=== PATIENT | male | born 1955 | race Caucasian/White ===

== ENCOUNTER 2016-02-23 09:14 | Emergency (ER) | payer MEDICAID ==
[2015-10-25 14:36] VITALS: BMI 38.1
[~2016-02-23 09:14] MED LIST: ALEVE220 MG PO; AMBIEN10 MG PO; BAYER CHEWABLE81 MG PO; COMBIVENT RESPIM4 GM INH; COUMADIN5 MG PO; ELIQUIS2.5 MG PO; LIPITOR10 MG PO; NAPROSYN250 MG PO; NEURONTIN 300300 MG PO; OXYCODONE HCL E20 MG PO; OXYCODONE HCL10 MG PO; PAXIL20 MG PO; PERCOCET 10/3251 TA1 PO; SYMBICORT 16010.2 GM INH; TOPROL XL25 MG PO; WELLBUTRIN100 MG PO; XANAX1 MG PO; ZANAFLEX4 MG PO
[2016-02-23 09:49] LABS: BASOPHILS 0.6 % (0.0-2.0); EOSINOPHILS 6.1 % (0-7); HEMATOCRIT 47.5 % (42.0-54.0); HEMOGLOBIN 15.5 g/dL (13.5-17.5); IMMATURE GRANULOCYTES 0.2 % (0-5); LYMPHOCYTES 37.4 % (15-50); MCH 33.5 pg (26.0-34.0); MCHC 32.6 g/dL (31.0-37.0); MCV 102.8 fL (80.0-100.0); MEAN PLATELET VOLUME 10.3 fL (7.4-10.4); MONOCYTES 5.9 % (2-11); NEUTROPHILS 49.8 % (40-80); PLATELET COUNT 245 10x3/uL (130-400); RBC 4.62 10x6/uL (4.20-6.10); RDW 13.1 % (11.5-14.5); WBC 8.5 10x3/uL (4.8-10.8)
[2016-02-23 10:20] LABS: ALBUMIN 3.7 g/dL (3.4-5.0); ANION GAP 11.9 mmol/L (8-16); BILIRUBIN - TOTAL 0.35 mg/dL (0.2-1.3); CALCIUM 9.4 mg/dL (8.5-10.1); CREATININE - SERUM 1.1 mg/dL (0.6-1.3); POTASSIUM - SERUM 3.9 mmol/L (3.5-5.1); PROTEIN - SERUM 6.6 g/dL (6.4-8.2)
[2016-02-23 10:46] LABS: APPEARANCE CLEAR (CLEAR); BILIRUBIN NEGATIVE (NEGATIVE); COLOR YELLOW (YELLOW); GLUCOSE NEGATIVE (NEGATIVE); KETONE NEGATIVE (NEGATIVE); LEUKOCYTE ESTERASE NEGATIVE (NEGATIVE); NITRITE NEGATIVE (NEGATIVE); PROTEIN NEGATIVE (NEGATIVE); SPECIFIC GRAVITY 1.015 (1.005-1.020); UROBILINOGEN NORMAL (NORMAL)
== END 2016-02-23 13:05 | disposition home or self-care (01) ==
LOC: D.ER 09:14
PROVIDERS: Emergency Medicine Emergency Medical Services
DX: R53.1 Weakness (principal); R00.1 Bradycardia, unspecified; J44.9 Chronic obstructive pulmonary disease, unspecified; I50.9 Heart failure, unspecified; F17.200 Nicotine dependence, unspecified, uncomplicated

== ENCOUNTER 2016-03-25 14:15 | Emergency (ER) | payer MEDICAID ==
[2015-10-25 14:36] VITALS: BMI 38.1
== END 2016-03-25 17:25 | disposition home or self-care (01) ==
LOC: D.ER 14:15
DX: S83.91XA Sprain of unspecified site of right knee, initial encounter (principal); W01.0XXA Fall on same level from slipping, tripping and stumbling without subsequent striking against object, initial encounter; Y93.89 Activity, other specified; Y92.019 Unspecified place in single-family (private) house as the place of occurrence of the external cause; I50.9 Heart failure, unspecified; J44.9 Chronic obstructive pulmonary disease, unspecified

== ENCOUNTER 2016-04-20 13:24 | Emergency (ER) | payer MEDICAID ==
[2015-10-25 14:36] VITALS: BMI 38.1
[2016-04-20 14:04] LABS: BASOPHILS 0.3 % (0.0-2.0); EOSINOPHILS 1.2 % (0-7); HEMATOCRIT 50.7 % (42.0-54.0); HEMOGLOBIN 16.6 g/dL (13.5-17.5); IMMATURE GRANULOCYTES 0.4 % (0-5); LYMPHOCYTES 13.7 % (15-50); MCH 33.1 pg (26.0-34.0); MCHC 32.7 g/dL (31.0-37.0); MCV 101.2 fL (80.0-100.0); MEAN PLATELET VOLUME 10.5 fL (7.4-10.4); MONOCYTES 7.5 % (2-11); NEUTROPHILS 76.9 % (40-80); PLATELET COUNT 292 10x3/uL (130-400); RBC 5.01 10x6/uL (4.20-6.10); RDW 13.5 % (11.5-14.5); WBC 11.4 10x3/uL (4.8-10.8)
[2016-04-20 14:29] LABS: ALBUMIN 4.3 g/dL (3.4-5.0); ALKALINE PHOSPHATASE 93 U/L (46-116); ALT (SGPT) 32 U/L (10-68); BILIRUBIN - TOTAL 0.34 mg/dL (0.2-1.3); CALC OSMOLALITY 280 mosm/kg (275-300); CALCIUM 9.1 mg/dL (8.5-10.1); CARBON DIOXIDE 28.5 mmol/L (21.0-32.0); CHLORIDE - SERUM 102 mmol/L (98-107); GLUCOSE 109 mg/dL (74-106); POTASSIUM - SERUM 4.7 mmol/L (3.5-5.1); PROTEIN - SERUM 7.6 g/dL (6.4-8.2); SODIUM 139 mmol/L (136-145); UREA NITROGEN 18 mg/dL (7-18); eGFR NON AFRICAN AMERICAN 81 mL/min (90-120)
[2016-04-20 14:42] LABS: APPEARANCE HAZY (CLEAR); BILIRUBIN NEGATIVE (NEGATIVE); COLOR YELLOW (YELLOW); GLUCOSE NEGATIVE (NEGATIVE); KETONE NEGATIVE (NEGATIVE); LEUKOCYTE ESTERASE NEGATIVE (NEGATIVE); NITRITE NEGATIVE (NEGATIVE); PROTEIN NEGATIVE (NEGATIVE); SPECIFIC GRAVITY 1.025 (1.005-1.020); UROBILINOGEN NORMAL (NORMAL)
[2016-04-20 14:43] LABS: BACTERIA FEW /hpf (NONE SEEN); EPITHELIAL CELLS OCC /hpf (0-5); GRANULAR CAST RARE /lpf (NONE SEEN); HYALINE CAST 0-5 /lpf (NONE SEEN); MUCUS <1+ /lpf (NONE SEEN); RED CELLS - URINE OCC /hpf (0-5); WHITE CELLS - URINE RARE /hpf (0-5)
[2016-04-20 15:23] LABS: UDS - AMPHET NEGATIVE QUAL (NEGATIVE); UDS - BARB NEGATIVE QUAL (NEGATIVE); UDS - BENZO POSITIVE QUAL (NEGATIVE); UDS - COCAINE NEGATIVE QUAL (NEGATIVE); UDS - METH NEGATIVE QUAL (NEGATIVE); UDS - OPIATE POSITIVE QUAL (NEGATIVE); UDS - PCP NEGATIVE QUAL (NEGATIVE); UDS - THC POSITIVE QUAL (NEGATIVE)
== END 2016-04-20 17:46 | disposition home or self-care (01) ==
LOC: D.ER 13:24
PROVIDERS: Emergency Medicine
DX: E86.0 Dehydration (principal); R55 Syncope and collapse; T65.91XA Toxic effect of unspecified substance, accidental (unintentional), initial encounter; Y92.019 Unspecified place in single-family (private) house as the place of occurrence of the external cause; I50.9 Heart failure, unspecified; J44.9 Chronic obstructive pulmonary disease, unspecified

== ENCOUNTER 2016-07-26 14:10 | Emergency (ER) | payer MEDICAID ==
[2015-10-25 14:36] VITALS: BMI 38.1
== END 2016-07-26 14:11 | disposition home or self-care (01) ==
LOC: D.ER 14:10
DX: S32.028A Other fracture of second lumbar vertebra, initial encounter for closed fracture (principal)

== ENCOUNTER 2016-09-18 11:08 | Inpatient (IN) | payer MEDICAID ==
[~2016-09-18] VITALS: Ht 177.8 cm; Wt 127.6 kg
--- NOTE | ~2016-09-18 | HEMODYNAMI ---
PATIENT:ASHLEY PAZ MEDICAL RECORD: [id number] : 59 LOCATION:D. D.2116 ADMISSION DATE: 09/18/16 Generatedon:09/20/201611:49 Patient name: ASHLEY PAZ Patient #: [id number] SSN: D OB: 1955 Date of study: 09/20/2016 Page: Of Hemodynamic Procedure Report Patient Data Patient Demographics Procedure consent was obtained First Name: ASHLEY Gender: Male Last Name: BRANDI : 1955 Middle Initial: PATRICIA Age: 61 year(s) Patient #: [id number] Race: Additional ID: [id number] Contact details Address: [address] [place] [address] [address] State: [place] City: [facility] Zip code: [address] Past Medical History Allergies Allergen Reaction Date Comments Reported Other allergy 10/27/2014 Sulfa, Clindamycin Other allergy 09/20/2016 Clindamycin, Sulfa, Amblify, Augmentin Admission Admission Data Admission Date: 09/18/2016 Admission Time: 14:33 Room #: D.2116 Procedure Procedure Types Cath Procedure Diagnostic Procedure LHC LH w/Coronaries Miscellaneous Procedures Moderate Sedation up to 15 minutes Procedure Description Procedure Date Procedure Date: 09/20/2016 Procedure Start Time: 11:28 Procedure End Time: 11:45 Procedure Staff Name Function Antonio Beck RT Monitor Margarita Vaz RN Nurse Geovanni Sequeira MD Performing Physician Beverly Farrell RT Scrub Procedure Data Cath Procedure Fluoroscopy Diagnostic fluoroscopy Total fluoroscopy Time: 2.3 time: 2.3 min min Diagnostic fluoroscopy Total fluoroscopy dose: 819 dose: 819 mGy mGy Contrast Material Contrast Material Type Amount (ml) Isovue 300 62 Entry Location Entry Primary Successful Side Size Upsize Upsize Entry Closure Sparks ccessful Closure Location (Fr) 1 (Fr) 2 (Fr) Remarks Device Remarks Radial Right 6 Fr Mechanical artery Short Compression Estimated blood loss: 10 ml Diagnostic catheters Device Type Used For End Catheter Placement Terumo 5Fr Philip 110cm Procedure catheter Procedure Medications Medication Administration Route Dosage Oxygen NC 4 l/min Lidocaine 2% added to field 20 Heparin Flush Bag added to field 2 bags (1000units/500ml NS) 0.9% NaCl I.V. 100 ml/hr Versed I.V. 1 mg Fentanyl I.V. 50 mcg Versed I.V. 1 mg Fentanyl I.V. 50 mcg Radial Cocktail I.A. 1 syringe (Verapomil 2mg/Nitro 400mcg/Heparin 1500units) Versed I.V. 1 mg Fentanyl I.V. 50 mcg Versed I.V. 1 mg Fentanyl I.V. 50 mcg Hemodynamics Rest Heart Rate: 72 (bpm) Pressure Samples Time Site Value (mmHg) Purpose Heart Use Rate(bpm) 11:34 LV 145/11,27 Snapshot 72 Snapshots Pre Cath Intra NCS Post Cath Vital Signs Time Heart Resp SPO2 etCO2 WI7bcan NIBP (mmHg) Rhythm Pain Sedation Rate (ipm) (%) (mmHg) (mmHg) Status Level (bpm) 11:19:20 62 17 100 0 0 139/90(109) NSR 0 (11) 10(A) , No pain 11:23:42 60 18 98 0 0 134/81(107) NSR 0 (11) 10(A) , No pain 11:28:00 62 14 95 0 0 131/89(105) NSR 0 (11) 9(A) , No pain 11:32:16 68 15 95 0 0 138/95(112) NSR 0 (11) 9(A) , No pain 11:36:34 69 16 94 0 0 122/76(104) NSR 0 (11) 9(A) , No pain 11:40:50 71 17 95 0 0 128/82(113) NSR 0 (11) 9(A) , No pain 11:43:01 68 16 95 0 0 124/75(111) NSR 0 (11) 10(A) , No pain Medications Time Medication Route Dose Verified Delivered Reason Notes Effectiveness by by 11:14:58 Oxygen NC 4 l/min Geovanni Buffie used for Hua Vaz housekeeping associate 11:17:48 Lidocaine 2% added 20ml Geovanni Geovanni for local to vial Hua Sequeira MD anesthetic field 11:17:54 Heparin Flush added 2 bags Geovanni Geovanni used for Bag to Hua Sequeira MD procedure (1000units/500ml field NS) 11:18:03 0.9% NaCl I.V. 100 Geovanni Buffie Per ml/hr Hua Vaz RN physician 11:19:21 Versed I.V. 1 mg Geovanni Buffie for sedation Hua Vaz RN 11:19:27 Fentanyl I.V. 50 mcg Geovanni Buffie for sedation Hua Vaz RN 11:26:31 Versed I.V. 1 mg Geovanni Buffie for sedation Hua Vaz RN 11:26:34 Fentanyl I.V. 50 mcg Geovanni Buffie for sedation Hua Vaz RN 11:32:48 Radial Cocktail I.A. 1 Geovanni Geovanni for (Verapomil syringe Hua Sequeira MD vasodilation 2mg/Nitro 400mcg/Hepari 11:32:54 Versed I.V. 1 mg Geovanni Buffie for sedation Hua Vaz RN 11:32:58 Fentanyl I.V. 50 mcg Geovanni Buffie for sedation Hua Vaz RN 11:38:14 Versed I.V. 1 mg Geovanni Buffie for sedation Hua Vaz RN 11:38:18 Fentanyl I.V. 50 mcg Geovanni Buffie for sedation Hua Vaz RN Procedure Log Time Note 10:59:03 Informed consent obtained and on chart 10:59:11 Diagnostic Cath Status : Elective 10:59:53 Antonio Beck RT(R) (CV) sent for patient. Start room use. 11:00:06 Time tracking: Regular hours 11:00:13 Plan of Care:Hemodynamics will remain stable., Cardiac rhythm will remain stable., Comfort level will be maintained., Respiratory function will remain adequate., Patient/ family verbilizes understanding of procedure., Procedure tolerated without complication., Recovers from procedure without complications.. 11:06:51 Patient arrived from Med/Surg to CCL 1. Patient remains on bed/stretcher for procedure. 11:06:55 Warm blankets applied, and quan hugger turned on for patient comfort. 11:06:56 Correct patient and procedure confirmed by team. 11:07:12 H&P Date Dictated: 09/19/2016 Within 30 days and on chart.. 11:07:13 Pre-op teaching completed and patient verbalized understanding. 11:07:17 Family unavailable. 11:07:19 Patient NPO since Breakfast. 11:08:30 Patient allergic to Other allergyClindamycin, Sulfa, Amblify, Augmentin 11:10:08 Is the patient allergic to Iodine/contrast media? No. 11:10:16 Is patient on blood thinner?No 11:11:15 Patient diabetic? No. 11:11:19 Snore? Yes 11:11:22 Sleep apnea? Yes 11:11:29 Airway obstruction? Yes COPD 11:11:34 Dentures? Yes tight 11:11:59 IV patent on arrival in left forearm with 0.9% NaCl at O. 11:12:11 Lab results completed and on chart. 11:12:44 Right Radial & Right Groin area was prepped with chlora-prep and draped in sterile fashion 11:12:45 Alarms reviewed by R. N. 11:12:46 Sharps counted by scrub and verified by R.N. 11:12:47 Physician paged 11:12:49 Physician arrived 11:12:52 Final Timeout: patient, procedure, and site verified with staff and physician. All members of the team are in agreement. 11:12:52 --------ALL STOP TIME OUT------ 11:12:53 Physical assessment completed. ASA score P 3 - A patient with severe systemic disease as per Geovanni Sequeira MD. 11:12:56 Right Radial & Right Groin site verified by team. 11:13:02 Sedation plan: IV Moderate Sedation Versed, Fentanyl 11:14:58 Oxygen 4 l/min NC was administered by Margarita Vaz RN; used for procedure; 11:17:48 Lidocaine 2% 20ml vial added to field was administered by Geovanni Sequeira MD; for local anesthetic; 11:17:54 Heparin Flush Bag (1000units/500ml NS) 2 bags added to field was administered by Geovanni Sequeira MD; used for procedure; 11:18:03 0.9% NaCl 100 ml/hr I.V. was administered by Margarita Vaz RN; Per physician; 11:18:06 Vital chart was started 11:19:21 Versed 1 mg I.V. was administered by Margarita Vaz RN; for sedation; 11:19:27 Fentanyl 50 mcg I.V. was administered by Margarita Vaz RN; for sedation; 11:22:01 Use device set Radial Dx 11:22:02 Acist Syringe opened to sterile field. 11:22:03 Medline Cath Pack opened to sterile field. 11:22:04 Bag Decanter opened to sterile field. 11:22:05 Terumo 6Fr Slender Glidesheath opened to sterile field. 11:22:06 St Chilo 260cm J .035 wire opened to sterile field. 11:22:07 Acist Hand Control opened to sterile field. 11:22:08 Acist Manifold opened to sterile field. 11:22:09 Tegaderm 4 x 4 opened to sterile field. 11:22:10 MBrace Wrist Support opened to sterile field. 11::31 Versed 1 mg I.V. was administered by Margarita Vaz RN; for sedation; 11::34 Fentanyl 50 mcg I.V. was administered by Margarita Vaz RN; for sedation; 11:28:25 Full Disclosure recording started 11::25 Procedure started. 11:28:31 Local anesthetic to right radial artery with Lidocaine 2% by Geovanni Sequeira MD.INITIAL ACCESS ONLY 11:29:47 Zero performed for pressure channel P1 11:32:19 A 6 Fr Short sheath was inserted into the Right Radial artery 11:32:48 Radial Cocktail (Verapomil 2mg/Nitro 400mcg/Heparin 1500units) 1 syringe I.A. was administered by Geovanni Sequeira MD; for vasodilation; 11:32:54 Versed 1 mg I.V. was administered by Margarita Vaz RN; for sedation; 11:32:55 A Terumo 5Fr Philip 110cm catheter was advanced over the wire and used for Procedure. 11:32:58 Fentanyl 50 mcg I.V. was administered by Margarita Vaz RN; for sedation; 11:34:15 LV hemodynamics recorded. 11:34:21 LV gram done using LOMBARDI 11:35:02 EF : 50 % 11:35:57 LCA angiography performed. 11:36:34 RCA angiography performed. 11:38:14 Versed 1 mg I.V. was administered by Margarita Vaz RN; for sedation; 11:38:18 Fentanyl 50 mcg I.V. was administered by Margarita Vaz RN; for sedation; 11:39:07 Catheter removed. 11:42:05 Terumo TR Band Large opened to sterile field. 11:42:19 Sheath removed intact; hemostasis achieved with Mechanical Compression to the Right Radial artery. 11:42:25 Procedure ended.(Physican Out) 11:42:42 Fluoroscopy time 02.30 minutes. 11:42:48 Fluoroscopy dose: 819 mGy 11:42:48 Flurop Dose total: 819 11:42:53 Contrast amount:Isovue 300 62ml. 11:42:55 Sharps counted by scrub and verified by R.N. 11:43:09 TR band inflated with 10cc of air. 11:43:45 Insertion/operative site no bleeding no hematoma. 11:43:53 Post right radial artery:stable 11:44:06 Post-procedure physical assessment completed. ASA score P 3 - A patient with severe systemic disease as per Geovanni Sequeira MD. 11:44:11 Post procedure rhythm: sinus rhythm 11:44:17 Estimated blood loss: 10 ml 11:44:23 Post procedure instruction explained to patient.Patient verbalizes understanding. 11:44:24 Patient needs reinforcement of post procedure teaching. 11:44:27 Procedure and supply charges have been captured, reviewed, submitted and are correct. 11:44:57 Vital chart was stopped 11:44:58 See physician's report for complete and final results. 11:45:02 Report given to PCU. 11:45:07 Patient transfered to PCU with Bed. 11:45:10 Full Disclosure recording stopped 11:45:10 Procedure ended. 11:45:22 End room use (Document Last) 11:48:01 Procedure type changed to Cath procedure, Diagnostic procedure, LHC, LHC w/Coronaries, Miscellaneous Procedures, Moderate Sedation up to 15 minutes Device Usage Item Name Manufacture Quantity Catalog Hospital Part Current Minimal Lot# / Number Charge Number Stock Stock Serial# Code Acist Acist 1 98221 146571 171527 412027 20 Syringe Medical Systems Inc Medline Cardinal 1 [id number] 128714 35078 472589 5 Cath Pack Health Bag Microtek 1 2001S 541996 18884 735764 5 [employer] Terumo 6Fr Terumo 1 [id number] 293882 481747 271436 [address] Chilo 1 975615 313572 504379 331382 30 260cm J .035 wire Acist Hand Acist 1 10175 444745 375244 514474 5 Control Medical Systems Inc Acist Acist 1 95887 131886 190598 241564 5 Manifold Medical Systems Inc Tegaderm 4 3M 1 1626W 116119 901208 831804 5 x 4 MBrace Advanced 1 140-0250-00 077170 46675 770422 5 Wrist Vascular Support Dynamics Terumo 5Fr Terumo 1 21-3584 548602 790331 335306 5 Philip 110cm catheter Terumo TR Terumo 1 [id number] 698950 862051 285669 40 Band Large Signature Audit [place] Stage Time Signature Unsigned Intra-Procedure 09/20/2016 Antonio Beck RT(R) 11:46:04 AM RT(R) (CV) (CV) 09/20/2016 11:47:45 AM Intra-Procedure 09/20/2016 Antonio Beck 11:49:17 AM RT(R) (CV) Signatures Monitor : Antonio Beck RT Signature : Date : Time : [facility] [address] [place] [address]
[2016-09-18 11:44] LABS: APPEARANCE CLEAR (CLEAR); BILIRUBIN NEGATIVE (NEGATIVE); COLOR YELLOW (YELLOW); GLUCOSE NEGATIVE (NEGATIVE); KETONE NEGATIVE (NEGATIVE); LEUKOCYTE ESTERASE NEGATIVE (NEGATIVE); NITRITE NEGATIVE (NEGATIVE); PROTEIN NEGATIVE (NEGATIVE); SPECIFIC GRAVITY 1.015 (1.005-1.020); UROBILINOGEN NORMAL (NORMAL)
[2016-09-18 13:24] LABS: BASOPHILS 0.3 % (0-2); HEMOGLOBIN 15.7 g/dL (13.5-17.5); IMMATURE GRANULOCYTES 0.3 % (0-5); MCH 33.4 pg (26.0-34.0); MCHC 31.4 g/dL (31.0-37.0); MCV 106.4 fL (80.0-100.0); MEAN PLATELET VOLUME 10.2 fL (7.4-10.4); MONOCYTES 6.1 % (2-11); NEUTROPHILS 64.3 % (40-80); PLATELET COUNT 287 10x3/uL (130-400); RDW 13.5 % (11.5-14.5); WBC 9.2 10x3/uL (4.8-10.8)
[2016-09-18 13:38] LABS: ALBUMIN 3.4 g/dL (3.4-5.0); ALKALINE PHOSPHATASE 65 U/L (46-116); ALT (SGPT) 23 U/L (10-68); BILIRUBIN - TOTAL 0.42 mg/dL (0.2-1.3); CALC OSMOLALITY 279 mosm/kg (275-300); CALCIUM 8.6 mg/dL (8.5-10.1); CARBON DIOXIDE 34.7 mmol/L (21.0-32.0); CHLORIDE - SERUM 103 mmol/L (98-107); CREATININE - SERUM 0.7 mg/dL (0.6-1.3); GLUCOSE 103 mg/dL (74-106); PROTEIN - SERUM 6.4 g/dL (6.4-8.2); SODIUM 141 mmol/L (136-145); UREA NITROGEN 9 mg/dL (7-18); eGFR NON AFRICAN AMERICAN > 90 mL/min (90-120)
[2016-09-18 13:41] LABS: CREATINE KINASE 44 UL (21-232); MAGNESIUM - SERUM 2.1 mg/dL (1.8-2.4)
[2016-09-18 13:42] LABS: TROPONIN-I < 0.017 ng/mL (0.000-0.060)
[2016-09-18 14:16] LABS: APPEARANCE - CSF COLORLESS; RBC - CSF 1420 cmm (0-0)
[2016-09-18 15:11] LABS: GLUCOSE - CSF 73 MG/DL (40-75); PROTEIN - CSF 62 MG/DL (12-60)
[2016-09-18] MEDS ORDERED: ROXICODONE15 MG PO (16:01)
[2016-09-18 16:10] VITALS: BP 135/80; Ht 177.8 cm; Wt 127.6 kg
--- NOTE | 2016-09-18 16:10 | NUR ---
PATIENT ASSESSMENT COMPLETE, VS STABLE. NO COMPLAINTS AT THIS TIME. STATED HE IS ON SEVERAL PAIN MEDS AND WANTS THEM NOW. EXPLAINED I WOULD LOOK AT ORDERS AND SPEAK TO PHYSICIAN NEEDED.
--- NOTE | 2016-09-18 16:50 | NUR ---
PATIENT JUST CAME OUT OF HIS ROOM AND SAID THAT HE WAS ONLY GOING TO WAIT 30 MORE MINUTES AND THAT IF HE DOESNT GET HIS PAIN MEDS SOON HE IS LEAVING AMA. EXPLAINED TO PATIENT THAT I HAVE ALREADY SPOKE WITH ROSARIO AND SHE IS LOOKING AT HIS MEDS. PATIENT STILL NOT SATIFIED. WENT BACK TO ROOM.
[2016-09-18 19:00] VITALS: BP 125/70
[2016-09-18 20:04] LABS: CREATINE KINASE 36 UL (21-232)
[2016-09-18 20:08] LABS: TROPONIN-I < 0.017 ng/mL (0.000-0.060)
--- NOTE | 2016-09-18 21:06 | NUR ---
AWAKE,ALERT,ORIENTED. IV INFUSING TO LEFT HAND WITHOUT REDNESS OR EDEMA NOTED. NO COMPLAINTS VOICED. CL IN REACH.
--- NOTE | 2016-09-19 00:20 | NUR ---
PATIENT IS AWAKE AND ALERT. PATIENT IS HOLDING HIS RIGHT HAND UP LOOKING AT IT, WHERE THE IV IS. PATIENT STATED "IT IS STINGING AND SWELLING UP PRETTY BAD." PAUSED IVF. LOOKED AT HAND, NO SWELLING VISUALIZED. FLUSHED IV WITH SALINE, READILY FLUSHED, ASPIRATED GOOD BLOOD RETURN, SHOWED PATIENT THE BLOOD RETURN. EXPLAINED TO PATIENT THAT THE IV IS IN THE NASIR. FLUSHED WITH THE REMAINDER OF THE FLUSH. PATIENT STATED "IT FEELS COOL NOW." PATIENT HAS SCDS OFF, PATIENT STATED "I TOOK THOSE OFF BECAUSE THEY HURT MY LEGS." PATIENT DENIES NEEDS AT THIS TIME. BED IN LOWEST POSITION, CALL LIGHT IN REACH. BED RAILS UP X'S 2.
[2016-09-19 00:55] VITALS: BP 125/71
--- NOTE | 2016-09-19 02:03 | NUR ---
AWAKE,ALERT. COMPLAINTS OF PAIN TO BILATERAL KNEES. OXYCODONE GIVEN PER ORDERS. CL IN REACH.
[2016-09-19 02:47] LABS: BASOPHILS 0.4 % (0-2); HEMATOCRIT 45.8 % (42.0-54.0); HEMOGLOBIN 14.5 g/dL (13.5-17.5); IMMATURE GRANULOCYTES 0.2 % (0-5); LYMPHOCYTES 33.7 % (15-50); MCH 33.6 pg (26.0-34.0); MCHC 31.7 g/dL (31.0-37.0); MCV 106.3 fL (80.0-100.0); MEAN PLATELET VOLUME 10.1 fL (7.4-10.4); MONOCYTES 9.8 % (2-11); NEUTROPHILS 52.9 % (40-80); PLATELET COUNT 287 10x3/uL (130-400); RBC 4.31 10x6/uL (4.20-6.10); RDW 13.6 % (11.5-14.5); WBC 8.1 10x3/uL (4.8-10.8)
[2016-09-19 03:23] LABS: ALBUMIN 3.1 g/dL (3.4-5.0); ALKALINE PHOSPHATASE 65 U/L (46-116); ALT (SGPT) 20 U/L (10-68); CALC OSMOLALITY 277 mosm/kg (275-300); CALCIUM 8.4 mg/dL (8.5-10.1); CARBON DIOXIDE 32.3 mmol/L (21.0-32.0); CHLORIDE - SERUM 102 mmol/L (98-107); CREATINE KINASE 29 UL (21-232); GLUCOSE 98 mg/dL (74-106); PROTEIN - SERUM 6.2 g/dL (6.4-8.2); SODIUM 140 mmol/L (136-145); TROPONIN-I < 0.017 ng/mL (0.000-0.060); UREA NITROGEN 10 mg/dL (7-18)
[2016-09-19 03:24] LABS: CREATININE - SERUM 0.9 mg/dL (0.6-1.3); POTASSIUM - SERUM 3.8 mmol/L (3.5-5.1); eGFR NON AFRICAN AMERICAN > 90 mL/min (90-120)
[2016-09-19 04:00] VITALS: BP 128/83
--- NOTE | 2016-09-19 06:08 | NUR ---
AWAKE,ALERT.NO DISTRESS NOTED. CL IN REACH.
[2016-09-19 07:39] VITALS: BP 116/67
--- NOTE | 2016-09-19 08:20 | NUR ---
Patient Name: ASHLEY PAZ Admission Status: ER Accout number: [id number] Admission Date: 09-18-2016 : 1955 Admission Diagnosis: Attending: CLARENCE Current LOS: 1 Anticipated DC Date: 09-24-2016 Planned Disposition: Home Primary Insurance: MEDICAID [place] Discharge Planning Comments: CM MET WITH PATIENT REGARDING D/C NEEDS AND PLANS. PATIENT STATED HE LIVES ALONE AND WILL PROBABLY NEED A RIDE HOME AT DISCHARGE. PATIENT STATED HE HAS NO STEPS OR STAIRS AT HIS HOME. PATIENT STATED HE IS INDEPENDENT WITH HIS CARE AND HAS A WALKER, CANE, AND OXYGEN (2L) AT HS. [employer] SUPPLIES THE OXYGEN PER PATIENT. DR. VARELA IS PATIENTS PCP AND PATIENT USES [facility]. PATIENT STATED HE DOES NOT WANT HOME HEALTH AT DISCHARGE. CM WILL CONTINUE TO FOLLOW PATIENT WITH D/C NEEDS AND PLANS. PCP DR. MARQUEZ [facility]- [phone] DAVID BLUM (FRIEND) [phone] Optical Laboratory Technician: Susana Guadarrama Is the patient Alert and Oriented? Yes 0 * How many steps to enter\exit or inside your home? 0 0 * PCP DR. VARELA 0 * Pharmacy [facility] 0 * Preadmission Environment Home Alone 0 * ADLs Independent 0 * Equipment Cane Oxygen Walker 0 * Other Equipment OXYGEN SUPPLIE BY [employer] 0 * List name and contact numbers for known caregivers / representatives who currently or will assist patient after discharge: ADVID BLUM [phone] (FRIEND) 0 * Community resources currently utilized None 0 * Additional services required to return to the preadmission environment? Yes 0 * Can the patient safely return to the preadmission environment? Yes 0 * Has this patient been hospitalized within the prior 30 days at any hospital? No 0 Grand Total: 0
--- NOTE | 2016-09-19 08:27 | NUR ---
AWAKE AND ALERT. ORIENTED X3. NO C/O AT THIS TIME. LUNGS ARE CLEAR BILATERALLY, NO COUGH NOTED. SKIN IS INTACT WITHOUT REDNESS. IV TO LEFT HAND PATENT WITHOUT REDNESS AT INSERTION SITE. DENIES NEEDS.
[2016-09-19 09:15] LABS: CKMB 0.2 U/L (0.0-3.6); CREATINE KINASE 36 UL (21-232); TROPONIN-I < 0.017 ng/mL (0.000-0.060)
--- NOTE | 2016-09-19 09:52 | NUR ---
REQUESTED AND GIVEN 15MG OXY IR PO FOR C/O BACK AND BILATERAL KNEE PAIN LEVEL 8. WILL MONITOR.
--- NOTE | 2016-09-19 10:30 | NUR ---
AMBULATED IN HALLWAY PER SELF. NO INCREASED SOB NOTED WITH ACTIVITY. CONTINUES WITH DRY COUGH.
[2016-09-19 12:09] LABS: BASOPHILS 0.2 % (0-2); EOSINOPHILS 2.4 % (0-7); HEMOGLOBIN 15.5 g/dL (13.5-17.5); IMMATURE GRANULOCYTES 0.1 % (0-5); LYMPHOCYTES 24.3 % (15-50); MCH 33.8 pg (26.0-34.0); MCHC 31.6 g/dL (31.0-37.0); MCV 106.8 fL (80.0-100.0); MEAN PLATELET VOLUME 10.6 fL (7.4-10.4); MONOCYTES 5.7 % (2-11); NEUTROPHILS 67.3 % (40-80); PLATELET COUNT 296 10x3/uL (130-400); RBC 4.59 10x6/uL (4.20-6.10); RDW 13.8 % (11.5-14.5); WBC 8.4 10x3/uL (4.8-10.8)
[2016-09-19 12:15] LABS: CALC OSMOLALITY 283 mosm/kg (275-300); CALCIUM 8.5 mg/dL (8.5-10.1); CARBON DIOXIDE 31.9 mmol/L (21.0-32.0); CHLORIDE - SERUM 103 mmol/L (98-107); CREATININE - SERUM 0.9 mg/dL (0.6-1.3); GLUCOSE 95 mg/dL (74-106); POTASSIUM - SERUM 4.1 mmol/L (3.5-5.1); SODIUM 143 mmol/L (136-145); UREA NITROGEN 9 mg/dL (7-18); eGFR NON AFRICAN AMERICAN > 90 mL/min (90-120)
[2016-09-19 12:17] VITALS: BP 140/72
--- NOTE | 2016-09-19 14:23 | NUR ---
20GUAGE IV RESITED TO L FOREARM. X1 ATTEMPT. SALINE LOCKED AND SECURED WITH TAPE.
--- NOTE | 2016-09-19 14:30 | NUR ---
IV SITED TO LEFT FOREARM AFTER SEVERAL ATTEMPTS PER STAFF. DENIES NEEDS. VERY APOLOGITIC RE THOUGHTS OF GOING AMA THIS AM.
[2016-09-19 15:35] VITALS: BP 124/70
--- NOTE | 2016-09-19 18:38 | NUR ---
ATE ALL OF SUPPER TRAY. DENIES NEEDS. NO CHANGES NOTED. C/O FEELING SLIGHTLY OUT OF BREATH. PLACED ON 2L O2 NC. WILL MONITOR.
[2016-09-19 19:00] VITALS: BP 125/78
--- NOTE | 2016-09-19 19:30 | NUR ---
RECIEVED SHIFT REPORT. PT IS LYING IN BED. ALERT AND ORIENTED AND ABLE TO VERBALIZE NEEDS. IV IS PATENT AND FLUIDS ARE RUNNING PER ORDER. PT IS AMBULATORY BUT WAS INSTRUCTED TO CALL FOR ANY ASSISTANCE NEEDED. O2 @ 2 PER NASAL CANNULA. PT STATES PAIN IS 10/10. NO NEEDS ARE VERBALIZED AT THIS TIME. WILL CONTINUE TO MONITOR. SIDE RAILS ARE UP X 2. BED IS IN LOWEST POSITION. CALL LIGHT IS WITHIN REACH.
--- NOTE | 2016-09-19 20:53 | NUR ---
SHIFT ASSESSMENT COMPLETED. NIGHT MEDS GIVEN WITH NO PROBLEMS. PT C/O PAIN 11/27. ADMINISTERED PRESCRIBED PRN OXY PER ORDER. PT ALSO REQUESTING SOMETHING FOR SLEEP. ADMINISTERED PRESCRIBED PRN AMBIEN PER ORDER. DENIES FURTHER NEEDS. WILL MONITOR. SIDE RAILS X 2. BED LOW. CALL LIGHT IN REACH.
[2016-09-20] VITALS: BP 124/69
[2016-09-20 04:00] VITALS: BP 101/52
[2016-09-20 06:10] LABS: BASOPHILS 0.4 % (0-2); EOSINOPHILS 4.3 % (0-7); HEMATOCRIT 45.8 % (42.0-54.0); HEMOGLOBIN 14.3 g/dL (13.5-17.5); MCH 33.2 pg (26.0-34.0); MCHC 31.2 g/dL (31.0-37.0); MCV 106.3 fL (80.0-100.0); MEAN PLATELET VOLUME 10.1 fL (7.4-10.4); MONOCYTES 8.5 % (2-11); NEUTROPHILS 56.8 % (40-80); PLATELET COUNT 271 10x3/uL (130-400); RBC 4.31 10x6/uL (4.20-6.10); RDW 13.7 % (11.5-14.5); WBC 6.8 10x3/uL (4.8-10.8)
[2016-09-20 06:31] LABS: ALBUMIN 2.9 g/dL (3.4-5.0); ALKALINE PHOSPHATASE 55 U/L (46-116); ALT (SGPT) 21 U/L (10-68); BILIRUBIN - TOTAL 0.37 mg/dL (0.2-1.3); CALC OSMOLALITY 282 mosm/kg (275-300); CARBON DIOXIDE 33.1 mmol/L (21.0-32.0); CHLORIDE - SERUM 106 mmol/L (98-107); CREATININE - SERUM 0.7 mg/dL (0.6-1.3); GLUCOSE 100 mg/dL (74-106); POTASSIUM - SERUM 4.1 mmol/L (3.5-5.1); SODIUM 143 mmol/L (136-145); UREA NITROGEN 7 mg/dL (7-18); eGFR NON AFRICAN AMERICAN > 90 mL/min (90-120)
--- NOTE | 2016-09-20 07:58 | NUR ---
PT AOX4 RESP EVEN AND NONLABORED PT DENIES NEEDS AT THIS TIME SRX2 BED AT LOWEST SETTING CALL LIGHT WITHIN REACH WILL CONTINUE TO MONITOR IV TO LEFT FOREARM PATENT AND INTACT AT THIS TIME
[2016-09-20 08:31] VITALS: BP 122/64
--- NOTE | 2016-09-20 12:00 | NUR ---
RECEIVED PT VIA BED FROM ANIMAL SHELTER SUPERVISOR IN STABLE CONDITION VSS PT DROWSEY PPPX4 RT WRIST WITH TR BAND AND BRACE INTACT NO SIGNS OF BLEEDING W2ILL CONTINUE TO MONITOR
[2016-09-20] MEDS ORDERED: NICODERM C1 PATCH .1 TRANSDERM (12:25)
[2016-09-20] MEDS ORDERED: CHRONULAC30 ML PO (12:26)
--- NOTE | 2016-09-20 15:40 | NUR ---
TR BAND REMOVED OCCLUSIVE DRSG IV DCD TO LFA WITH 20 GA IV CATH INTACT SITE FREE OF REDNESS OR EDEMA REVIEWED DISCHARGE INSTRUCTIONS WITH PT STATES UNDERSTANDING COPY GIVEN PT DISCHARGED HOME LEFT UNIT IN STABLE CONDITION WITH ALL PERSONAL BELONGINGS VIA W/C
[2016-09-21 11:17] LABS: FUNGUS STAIN Final report (())
== END 2016-09-20 15:40 | disposition home or self-care (01) | DRG 287 ==
LOC: D.ER 11:08 → D.MS 14:33 → D.M2 09-20 11:47
PROVIDERS: Emergency Medicine; General Practice; Internal Medicine Cardiovascular Disease; ADMIT Family Medicine
PROC: 009U3ZX Drainage of Spinal Canal, Percutaneous Approach, Diagnostic (ICD-10-PCS; principal; 2016-09-18)
PROC: B2111ZZ Fluoroscopy of Multiple Coronary Arteries using Low Osmolar Contrast (ICD-10-PCS; 2016-09-18)
PROC: B01B1ZZ Fluoroscopy of Spinal Cord using Low Osmolar Contrast (ICD-10-PCS; 2016-09-18)
PROC: B2151ZZ Fluoroscopy of Left Heart using Low Osmolar Contrast (ICD-10-PCS; 2016-09-20)
PROC: 4A023N7 Measurement of Cardiac Sampling and Pressure, Left Heart, Percutaneous Approach (ICD-10-PCS; 2016-09-20)
DX: I47.1 Supraventricular tachycardia (principal); Q24.5 Malformation of coronary vessels; I25.110 Atherosclerotic heart disease of native coronary artery with unstable angina pectoris; F17.203 Nicotine dependence unspecified, with withdrawal; R55 Syncope and collapse; R41.82 Altered mental status, unspecified; I10 Essential (primary) hypertension; E66.9 Obesity, unspecified; Z68.34 Body mass index [BMI] 34.0-34.9, adult; M17.11 Unilateral primary osteoarthritis, right knee; F41.9 Anxiety disorder, unspecified; M54.5 Low back pain

== ENCOUNTER 2017-01-13 14:32 | Emergency (ER) | payer MEDICAID ==
[2016-09-18 16:10] VITALS: BMI 38.8
[~2017-01-13 14:32] MED LIST changes: +CHRONULAC30 ML PO; +NICODERM C1 PATCH .1 TRANSDERM; +ROXICODONE15 MG PO
[2017-01-13 15:35] LABS: ALBUMIN 3.6 g/dL (3.4-5.0); ALKALINE PHOSPHATASE 64 U/L (46-116); ALT (SGPT) 32 U/L (10-68); BILIRUBIN - TOTAL 0.36 mg/dL (0.2-1.3); CALC OSMOLALITY 277 mosm/kg (275-300); CALCIUM 9.1 mg/dL (8.5-10.1); CARBON DIOXIDE 31.1 mmol/L (21.0-32.0); CHLORIDE - SERUM 101 mmol/L (98-107); CREATININE - SERUM 0.7 mg/dL (0.6-1.3); GLUCOSE 108 mg/dL (74-106); POTASSIUM - SERUM 4.2 mmol/L (3.5-5.1); SODIUM 139 mmol/L (136-145); UREA NITROGEN 10 mg/dL (7-18); eGFR NON AFRICAN AMERICAN > 90 mL/min (90-120)
[2017-01-13 15:42] LABS: BASOPHILS 0.2 % (0-2); EOSINOPHILS 1.3 % (0-7); HEMATOCRIT 48.2 % (42.0-54.0); HEMOGLOBIN 15.6 g/dL (13.5-17.5); IMMATURE GRANULOCYTES 0.5 % (0-5); LYMPHOCYTES 27.2 % (15-50); MCH 33.4 pg (26.0-34.0); MCHC 32.4 g/dL (31.0-37.0); MCV 103.2 fL (80.0-100.0); MEAN PLATELET VOLUME 10.6 fL (7.4-10.4); MONOCYTES 7.9 % (2-11); NEUTROPHILS 62.9 % (40-80); PLATELET COUNT 235 10x3/uL (130-400); RBC 4.67 10x6/uL (4.20-6.10); RDW 14.1 % (11.5-14.5); WBC 8.8 10x3/uL (4.8-10.8)
[2017-01-13 15:45] LABS: CHOL - HDL RATIO 4.6 ratio (2.3-4.9); CHOLESTEROL, TOTAL 256 mg/dL (0-200); CKMB 0.7 U/L (0.0-3.6); CREATINE KINASE 75 UL (21-232); HDL CHOLESTEROL 56 mg/dL (32-96); LDL CHOLESTEROL 166 mg/dL (0-100); TRIGLYCERIDE 173 mg/dL (30-200)
[2017-01-13 15:47] LABS: TROPONIN-I < 0.017 ng/mL (0.000-0.060)
[2017-01-13 16:17] LABS: APPEARANCE CLEAR (CLEAR); BILIRUBIN NEGATIVE (NEGATIVE); COLOR YELLOW (YELLOW); GLUCOSE NEGATIVE (NEGATIVE); KETONE NEGATIVE (NEGATIVE); NITRITE NEGATIVE (NEGATIVE); PROTEIN NEGATIVE (NEGATIVE); SPECIFIC GRAVITY 1.005 (1.005-1.020); UROBILINOGEN NORMAL (NORMAL)
== END 2017-01-13 17:00 | disposition home or self-care (01) ==
LOC: D.ER 14:32
PROVIDERS: Emergency Medicine; Physician Assistant Medical
DX: R07.9 Chest pain, unspecified (principal); F19.939 Other psychoactive substance use, unspecified with withdrawal, unspecified; J11.1 Influenza due to unidentified influenza virus with other respiratory manifestations; R07.89 Other chest pain; F41.9 Anxiety disorder, unspecified; F17.200 Nicotine dependence, unspecified, uncomplicated

== ENCOUNTER 2017-06-01 19:28 | Emergency (ER) | payer MEDICAID ==
[2016-09-18 16:10] VITALS: BMI 38.8
== END 2017-06-01 21:00 | disposition home or self-care (01) ==
LOC: D.ER 19:28
DX: F43.10 Post-traumatic stress disorder, unspecified (principal); X58.XXXA Exposure to other specified factors, initial encounter; Y93.89 Activity, other specified; Y92.89 Other specified places as the place of occurrence of the external cause; F32.9 Major depressive disorder, single episode, unspecified; F41.1 Generalized anxiety disorder

== ENCOUNTER 2017-07-16 09:12 | Emergency (ER) | payer MEDICAID ==
[2016-09-18 16:10] VITALS: BMI 38.8
[2017-07-16 09:54] LABS: ALBUMIN 3.2 g/dL (3.4-5.0); ALKALINE PHOSPHATASE 63 U/L (46-116); ALT (SGPT) 30 U/L (10-68); BILIRUBIN - TOTAL 0.45 mg/dL (0.2-1.3); CALC OSMOLALITY 276 mosm/kg (275-300); CALCIUM 8.7 mg/dL (8.5-10.1); CARBON DIOXIDE 33.3 mmol/L (21.0-32.0); CHLORIDE - SERUM 101 mmol/L (98-107); CREATININE - SERUM 0.8 mg/dL (0.6-1.3); GLUCOSE 114 mg/dL (74-106); POTASSIUM - SERUM 4.8 mmol/L (3.5-5.1); PROTEIN - SERUM 6.8 g/dL (6.4-8.2); SODIUM 139 mmol/L (136-145); UREA NITROGEN 8 mg/dL (7-18); eGFR NON AFRICAN AMERICAN > 90 mL/min (90-120)
[2017-07-16 10:21] LABS: BASOPHILS 0.5 % (0-2); HEMATOCRIT 47.9 % (42.0-54.0); HEMOGLOBIN 15.9 g/dL (13.5-17.5); IMMATURE GRANULOCYTES 0.2 % (0-5); LYMPHOCYTES 39.4 % (15-50); MCH 33.8 pg (26.0-34.0); MCHC 33.2 g/dL (31.0-37.0); MCV 101.9 fL (80.0-100.0); MEAN PLATELET VOLUME 10.9 fL (7.4-10.4); MONOCYTES 8.1 % (2-11); NEUTROPHILS 48.8 % (40-80); RDW 13.7 % (11.5-14.5); WBC 8.8 10x3/uL (4.8-10.8)
[2017-07-16 10:25] LABS: PLATELET COUNT 284 10x3/uL (130-400)
== END 2017-07-16 12:10 | disposition home or self-care (01) ==
LOC: D.ER 09:12
PROVIDERS: Family Medicine
DX: L03.115 Cellulitis of right lower limb (principal); F17.200 Nicotine dependence, unspecified, uncomplicated; I10 Essential (primary) hypertension

== ENCOUNTER 2017-09-03 16:01 | Emergency (ER) | payer MEDICAID ==
[~2017-09-03] VITALS: Ht 177.8 cm; Wt 123.6 kg
[2017-09-03 16:04] VITALS: Ht 177.8 cm; Wt 123.6 kg
[2017-09-03] MEDS ORDERED: SYMBICORT 16010.2 GM INH (16:06)
[2017-09-03] MEDS ORDERED: TORADOL10 MG PO (20:28)
[2017-09-03 20:47] VITALS: BP 107/83
== END 2017-09-03 20:54 | disposition home or self-care (01) ==
LOC: D.ER 16:01
DX: R42 Dizziness and giddiness (principal); R51 Headache; M54.5 Low back pain; F17.200 Nicotine dependence, unspecified, uncomplicated; W19.XXXA Unspecified fall, initial encounter; Y93.89 Activity, other specified; Y92.89 Other specified places as the place of occurrence of the external cause

== ENCOUNTER 2017-11-25 21:06 | Observation (INO) | payer MEDICAID ==
[~2017-11-25] VITALS: Ht 177.8 cm; Wt 122.9 kg
[~2017-11-25 21:06] MED LIST changes: +TORADOL10 MG PO
[2017-11-25 21:26] LABS: BASOPHILS 0.7 % (0-2); EOSINOPHILS 3.7 % (0-7); HEMOGLOBIN 17.2 g/dL (13.5-17.5); IMMATURE GRANULOCYTES 0.4 % (0-5); LYMPHOCYTES 40.7 % (15-50); MCH 33.1 pg (26.0-34.0); MCHC 32.5 g/dL (31.0-37.0); MCV 102.1 fL (80.0-100.0); MEAN PLATELET VOLUME 10.9 fL (7.4-10.4); MONOCYTES 5.6 % (2-11); NEUTROPHILS 48.9 % (40-80); PLATELET COUNT 291 10x3/uL (130-400); RBC 5.19 10x6/uL (4.20-6.10); WBC 10.6 10x3/uL (4.8-10.8)
[2017-11-25 21:55] LABS: ALBUMIN 4.1 g/dL (3.4-5.0); ALKALINE PHOSPHATASE 79 U/L (46-116); ALT (SGPT) 30 U/L (10-68); BILIRUBIN - TOTAL 0.25 mg/dL (0.2-1.3); CALC OSMOLALITY 280 mosm/kg (275-300); CALCIUM 9.5 mg/dL (8.5-10.1); CARBON DIOXIDE 31.3 mmol/L (21.0-32.0); CHLORIDE - SERUM 103 mmol/L (98-107); CREATININE - SERUM 1.1 mg/dL (0.6-1.3); GLUCOSE 119 mg/dL (74-106); PROTEIN - SERUM 7.9 g/dL (6.4-8.2); SODIUM 141 mmol/L (136-145); UREA NITROGEN 11 mg/dL (7-18); eGFR NON AFRICAN AMERICAN 72 mL/min (90-120)
[2017-11-25 22:00] LABS: UDS - AMPHET NEGATIVE QUAL (NEGATIVE); UDS - BARB NEGATIVE QUAL (NEGATIVE); UDS - BENZO POSITIVE QUAL (NEGATIVE); UDS - COCAINE NEGATIVE QUAL (NEGATIVE); UDS - OPIATE POSITIVE QUAL (NEGATIVE); UDS - PCP NEGATIVE QUAL (NEGATIVE); UDS - THC NEGATIVE QUAL (NEGATIVE)
[2017-11-25 22:02] LABS: CREATINE KINASE 52 UL (21-232); LIPASE 215 U/L (73-393); PRO BNP 119 pg/mL (0-125)
[2017-11-25 22:04] LABS: TROPONIN-I < 0.017 ng/mL (0.000-0.060)
[2017-11-25 22:10] LABS: APPEARANCE CLEAR (CLEAR); BILIRUBIN NEGATIVE (NEGATIVE); COLOR YELLOW (YELLOW); GLUCOSE NEGATIVE (NEGATIVE); KETONE NEGATIVE (NEGATIVE); NITRITE NEGATIVE (NEGATIVE); PROTEIN TRACE mg/dL (NEGATIVE); SPECIFIC GRAVITY 1.025 (1.005-1.020); UROBILINOGEN NORMAL (NORMAL)
[2017-11-25 22:35] VITALS: BP 123/89
[2017-11-25 23:35] VITALS: BP 143/92
[2017-11-26] VITALS (8 sets, daily range): BP systolic 121–151; BP diastolic 66–98; Ht 177.8 cm; Wt 122.9 kg
[2017-11-26] MEDS ORDERED: AMBIEN10 MG PO (02:41)
[2017-11-27 00:48] VITALS: BP 131/67
[2017-11-27 04:47] VITALS: BP 116/53
[2017-11-27 05:59] LABS: BASOPHILS 0.4 % (0-2); EOSINOPHILS 4.6 % (0-7); HEMATOCRIT 47.6 % (42.0-54.0); HEMOGLOBIN 15.1 g/dL (13.5-17.5); IMMATURE GRANULOCYTES 0.2 % (0-5); LYMPHOCYTES 28.6 % (15-50); MCH 32.7 pg (26.0-34.0); MCHC 31.7 g/dL (31.0-37.0); MEAN PLATELET VOLUME 10.7 fL (7.4-10.4); MONOCYTES 6.9 % (2-11); NEUTROPHILS 59.3 % (40-80); PLATELET COUNT 269 10x3/uL (130-400); RBC 4.62 10x6/uL (4.20-6.10); RDW 13.8 % (11.5-14.5); WBC 8.4 10x3/uL (4.8-10.8)
[2017-11-27 06:27] LABS: CALC OSMOLALITY 279 mosm/kg (275-300); CALCIUM 8.5 mg/dL (8.5-10.1); CARBON DIOXIDE 34.7 mmol/L (21.0-32.0); CHLORIDE - SERUM 103 mmol/L (98-107); GLUCOSE 93 mg/dL (74-106); SODIUM 141 mmol/L (136-145); UREA NITROGEN 10 mg/dL (7-18)
[2017-11-27 06:29] LABS: CREATININE - SERUM 0.7 mg/dL (0.6-1.3); POTASSIUM - SERUM 4.1 mmol/L (3.5-5.1); eGFR NON AFRICAN AMERICAN > 90 mL/min (90-120)
[2017-11-27 06:59] VITALS: BP 110/59
[2017-11-27 11:12] VITALS: BP 118/50
[2017-11-27 15:53] VITALS: BP 118/55
== END 2017-11-27 16:12 | disposition home or self-care (01) ==
LOC: D.ER 21:06 → D.M3 11-26 01:26 → OBSVTIME 11-26 01:26 → D.M3 11-26 01:26
PROVIDERS: Family Medicine; Internal Medicine Nephrology
DX: T40.601A Poisoning by unspecified narcotics, accidental (unintentional), initial encounter (principal); J44.1 Chronic obstructive pulmonary disease with (acute) exacerbation; J96.21 Acute and chronic respiratory failure with hypoxia; F17.213 Nicotine dependence, cigarettes, with withdrawal; I10 Essential (primary) hypertension; F41.9 Anxiety disorder, unspecified; F32.9 Major depressive disorder, single episode, unspecified

== ENCOUNTER 2017-12-30 20:28 | Emergency (ER) | payer MEDICAID ==
[~2017-12-30] VITALS: Ht 177.8 cm; Wt 120.5 kg
[2017-12-30 20:33] VITALS: Ht 177.8 cm; Wt 120.5 kg
[2017-12-30] MEDS ORDERED: ROBAXIN500 MG PO (21:40)
[2017-12-30 22:20] VITALS: BP 128/81
== END 2017-12-30 22:20 | disposition home or self-care (01) ==
LOC: D.ER 20:28
DX: S39.012A Strain of muscle, fascia and tendon of lower back, initial encounter (principal); W18.2XXA Fall in (into) shower or empty bathtub, initial encounter; Y93.E1 Activity, personal bathing and showering; Y92.013 Bedroom of single-family (private) house as the place of occurrence of the external cause; J44.9 Chronic obstructive pulmonary disease, unspecified; F17.200 Nicotine dependence, unspecified, uncomplicated

== ENCOUNTER 2018-02-13 15:44 | Inpatient (IN) | payer MEDICAID ==
[~2018-02-13] VITALS: Ht 177.8 cm; Wt 115.8 kg
--- NOTE | ~2018-02-13 | MORECARE ---
CASE MANAGEMENT DISCHARGE SUMMARY PATIENT: ASHLEY PAZ PATRICIA UNIT: [id number] ADM DATE: 02/13/18 AGE: 62 : 59 SEX: M ROOM/BED: D.2224 AUTHOR: ELE HYMAN PHYSICIAN: REFERRING PHYSICIAN: ADA TORRE MD DATE OF SERVICE: 02/16/18 Discharge Plan Patient Name: ASHLEY PAZ Facility: [facility]:[place] : 1955 Planned Disposition: Home Anticipated Discharge Date: 02/16/18 Discharge Date: 02/16/2018 Expected LOS: 3 Initial Reviewer: [email or web address] Initial Review Date: 02/13/2018 Generated: 02/16/18 6:44 pm Patient Name: ASHLEY PAZ Page [id number] at 1744 All edits/amendments must be made on the electronic document DICTATION DATE: 02/16/181743 DOCUMENTATION SUPERVISOR: SANDRA 02/16/181743 RPT#: [id number] DC DATE:02/16/18 STATUS: DIS IN [facility] [address] [place] [address] END OF REPORT
--- NOTE | ~2018-02-13 | MORECARE ---
CASE MANAGEMENT DISCHARGE SUMMARY PATIENT: ASHLEY PAZ PATRICIA UNIT: [id number] ADM DATE: 02/13/18 AGE: 62 : 59 SEX: M ROOM/BED: D.2224 AUTHOR: ELE YHMAN PHYSICIAN: REFERRING PHYSICIAN: ADA OTRRE MD DATE OF SERVICE: 02/16/18 Discharge Plan Patient Name: ASHLEY PAZ Facility: [facility]:[place] : 1955 Planned Disposition: Home Anticipated Discharge Date: 02/16/18 Discharge Date: 02/16/2018 Expected LOS: 3 Initial Reviewer: [email or web address] Initial Review Date: 02/13/2018 Generated: 02/16/18 6:51 pm Comments DCP- Discharge Planning Updated by [email or web address]: Samira Cook on 02/16/18 4:[address] TC TO PATIENT'S OTHER CONTACT, KESHIA BLUM. CALLED [phone]. NO ANSWER. DCP- Discharge Planning Updated by [email or web address]: Samira Cook on 02/16/18 4:[address] LATE ENTRY 1700 MD REQUEST CM TO SEE THE PATIENT TO OFFER HOME HEALTH. CM DID NOT GET TO VISIT PRIOR TO DISCHARGE. TC TO PATIENT'S HOME PHONE. WRONG PHONE NUMBER. Last DP export: 02/16/18 4:44 Patient Name: ASHLEY PAZ Page [phone] at 1751 All edits/amendments must be made on the electronic document DICTATION DATE: 02/16/181749 COLD MEAT COOK: SANDRA 02/16/181749 RPT#: [id number] DC DATE:02/16/18 STATUS: DIS IN [facility] [address] [place] [address] END OF REPORT
--- NOTE | ~2018-02-13 | MORECARE ---
CASE MANAGEMENT DISCHARGE SUMMARY PATIENT: ASHLEY PAZ PATRICIA UNIT: [id number] ADM DATE: 02/13/18 AGE: 62 : 59 SEX: M ROOM/BED: D.2224 AUTHOR: ELE HYMAN PHYSICIAN: REFERRING PHYSICIAN: ADA TORRE MD DATE OF SERVICE: 02/17/18 Discharge Plan Patient Name: ASHLEY PAZ Facility: [facility]:[place] : 1955 Planned Disposition: Home Anticipated Discharge Date: 02/16/18 Discharge Date: 02/16/2018 Expected LOS: 3 Initial Reviewer: [email or web address] Initial Review Date: 02/13/2018 Generated: 02/17/18 3:50 pm Comments DCP- Discharge Planning Updated by [email or web address]: Samira Cook on 02/16/18 4:[address] TC TO PATIENT'S OTHER CONTACT, KESHIA BLUM. CALLED [phone]. NO ANSWER. DCP- Discharge Planning Updated by [email or web address]: Samira Cook on 02/16/18 4:[address] LATE ENTRY 1700 MD REQUEST CM TO SEE THE PATIENT TO OFFER HOME HEALTH. CM DID NOT GET TO VISIT PRIOR TO DISCHARGE. TC TO PATIENT'S HOME PHONE. WRONG PHONE NUMBER. Last DP export: 02/16/18 4:51 Patient Name: ASHLEY PAZ Page [phone] at 1450 All edits/amendments must be made on the electronic document DICTATION DATE: 02/17/18 145 RURAL SERVICE ENGINEER: SANDRA 02/17/18 1450 RPT#: [id number] DC DATE:02/16/18 STATUS: DIS IN [facility] [address] [place] [address] END OF REPORT
[~2018-02-13 15:44] MED LIST changes: +ROBAXIN500 MG PO
[2018-02-13 16:00] VITALS: BP 121/73
[2018-02-13 16:30] VITALS: BP 130/80
[2018-02-13 16:32] LABS: BASOPHILS 0.1 % (0-2); EOSINOPHILS 0 % (0-7); HEMATOCRIT 45.8 % (42.0-54.0); HEMOGLOBIN 14.9 g/dL (13.5-17.5); IMMATURE GRANULOCYTES 0.3 % (0-5); LYMPHOCYTES 13.3 % (15-50); MCH 32.8 pg (26.0-34.0); MCHC 32.5 g/dL (31.0-37.0); MCV 100.9 fL (80.0-100.0); MEAN PLATELET VOLUME 10.1 fL (7.4-10.4); MONOCYTES 10.4 % (2-11); NEUTROPHILS 75.9 % (40-80); PLATELET COUNT 204 10x3/uL (130-400); RBC 4.54 10x6/uL (4.20-6.10); RDW 13.9 % (11.5-14.5); WBC 7.2 10x3/uL (4.8-10.8)
[2018-02-13 16:51] LABS: ALBUMIN 3.1 g/dL (3.4-5.0); ALKALINE PHOSPHATASE 57 U/L (46-116); ALT (SGPT) 29 U/L (10-68); BILIRUBIN - TOTAL 0.25 mg/dL (0.2-1.3); CALC OSMOLALITY 271 mosm/kg (275-300); CALCIUM 8.2 mg/dL (8.5-10.1); CARBON DIOXIDE 28.9 mmol/L (21.0-32.0); CHLORIDE - SERUM 97 mmol/L (98-107); CREATININE - SERUM 0.6 mg/dL (0.6-1.3); GLUCOSE 99 mg/dL (74-106); POTASSIUM - SERUM 4.4 mmol/L (3.5-5.1); PROTEIN - SERUM 6.7 g/dL (6.4-8.2); SODIUM 136 mmol/L (136-145); UREA NITROGEN 12 mg/dL (7-18); eGFR NON AFRICAN AMERICAN > 90 mL/min (90-120)
[2018-02-13 17:00] VITALS: BP 137/80
[2018-02-13 17:07] LABS: D-DIMER-QUANTITATIVE 0.36 ug/mLFEU (0.20-0.54)
[2018-02-13 17:10] LABS: INR 1.02 (0.85-1.17); PROTIME 12.9 SECONDS (11.6-15.0)
[2018-02-13 17:12] LABS: CKMB 1.6 U/L (0.0-3.6); CREATINE KINASE 71 UL (21-232); PRO BNP 798 pg/mL (0-125); TROPONIN-I < 0.017 ng/mL (0.000-0.060)
[2018-02-13 17:30] VITALS: BP 142/74
[2018-02-14 04:00] VITALS: BP 96/49
[2018-02-14 04:27] VITALS: BP 136/78; BMI 38.1
[2018-02-14 08:51] VITALS: BP 120/72
[2018-02-14 11:49] LABS: BASOPHILS 0 % (0-2); EOSINOPHILS 0 % (0-7); HEMATOCRIT 46.2 % (42.0-54.0); HEMOGLOBIN 15.3 g/dL (13.5-17.5); IMMATURE GRANULOCYTES 0.2 % (0-5); LYMPHOCYTES 15.1 % (15-50); MCHC 33.1 g/dL (31.0-37.0); MCV 99.6 fL (80.0-100.0); MEAN PLATELET VOLUME 10.4 fL (7.4-10.4); MONOCYTES 11.8 % (2-11); NEUTROPHILS 72.9 % (40-80); PLATELET COUNT 280 10x3/uL (130-400); RBC 4.64 10x6/uL (4.20-6.10); RDW 13.5 % (11.5-14.5); WBC 4.6 10x3/uL (4.8-10.8)
[2018-02-14 12:08] LABS: ALBUMIN 3.1 g/dL (3.4-5.0); ALKALINE PHOSPHATASE 53 U/L (46-116); ALT (SGPT) 24 U/L (10-68); BILIRUBIN - TOTAL 0.24 mg/dL (0.2-1.3); CALCIUM 8.9 mg/dL (8.5-10.1); CARBON DIOXIDE 35.5 mmol/L (21.0-32.0); CHLORIDE - SERUM 95 mmol/L (98-107); PROTEIN - SERUM 7.4 g/dL (6.4-8.2); SODIUM 138 mmol/L (136-145); UREA NITROGEN 15 mg/dL (7-18)
[2018-02-14 12:11] LABS: CALC OSMOLALITY 280 mosm/kg (275-300); CREATININE - SERUM 0.8 mg/dL (0.6-1.3); GLUCOSE 173 mg/dL (74-106); POTASSIUM - SERUM 3.5 mmol/L (3.5-5.1); eGFR NON AFRICAN AMERICAN > 90 mL/min (90-120)
[2018-02-14 13:44] VITALS: Ht 177.8 cm; Wt 115.8 kg
[2018-02-14 15:27] VITALS: BP 108/56
[2018-02-14 20:28] VITALS: BP 123/61
[2018-02-14 23:54] VITALS: BP 100/68
[2018-02-15 04:32] VITALS: BP 110/70
[2018-02-15] MEDS ORDERED: FUROSEMIDE20 MG PO (04:43)
[2018-02-15 05:54] LABS: BASOPHILS 0.3 % (0-2); EOSINOPHILS 0.1 % (0-7); HEMATOCRIT 46.9 % (42.0-54.0); HEMOGLOBIN 15.2 g/dL (13.5-17.5); IMMATURE GRANULOCYTES 0.3 % (0-5); LYMPHOCYTES 28.6 % (15-50); MCH 32.8 pg (26.0-34.0); MCHC 32.4 g/dL (31.0-37.0); MCV 101.1 fL (80.0-100.0); MEAN PLATELET VOLUME 10.3 fL (7.4-10.4); MONOCYTES 14.9 % (2-11); NEUTROPHILS 55.8 % (40-80); PLATELET COUNT 296 10x3/uL (130-400); RBC 4.64 10x6/uL (4.20-6.10); RDW 13.8 % (11.5-14.5)
[2018-02-15 05:58] LABS: WBC 6.7 10x3/uL (4.8-10.8)
[2018-02-15 06:31] LABS: ALBUMIN 2.9 g/dL (3.4-5.0); ALKALINE PHOSPHATASE 58 U/L (46-116); ALT (SGPT) 27 U/L (10-68); BILIRUBIN - TOTAL 0.27 mg/dL (0.2-1.3); CALCIUM 8.4 mg/dL (8.5-10.1); CHLORIDE - SERUM 95 mmol/L (98-107); CREATININE - SERUM 0.9 mg/dL (0.6-1.3); POTASSIUM - SERUM 3.2 mmol/L (3.5-5.1); PROTEIN - SERUM 6.5 g/dL (6.4-8.2); SODIUM 136 mmol/L (136-145); UREA NITROGEN 17 mg/dL (7-18); eGFR NON AFRICAN AMERICAN > 90 mL/min (90-120)
[2018-02-15 06:32] LABS: CALC OSMOLALITY 273 mosm/kg (275-300); GLUCOSE 96 mg/dL (74-106)
[2018-02-15 09:00] VITALS: BP 107/63
[2018-02-15 12:30] VITALS: BP 108/64
[2018-02-15 16:17] VITALS: BP 107/64
[2018-02-15 20:27] VITALS: BP 122/61
[2018-02-15 23:49] VITALS: BP 102/69
[2018-02-16 05:53] LABS: BASOPHILS 0.6 % (0-2); EOSINOPHILS 0.6 % (0-7); HEMATOCRIT 49.2 % (42.0-54.0); IMMATURE GRANULOCYTES 0.2 % (0-5); LYMPHOCYTES 47.8 % (15-50); MCHC 32.5 g/dL (31.0-37.0); MCV 101.4 fL (80.0-100.0); MEAN PLATELET VOLUME 9.9 fL (7.4-10.4); MONOCYTES 12.1 % (2-11); NEUTROPHILS 38.7 % (40-80); PLATELET COUNT 261 10x3/uL (130-400); RBC 4.85 10x6/uL (4.20-6.10); RDW 13.8 % (11.5-14.5); WBC 6.3 10x3/uL (4.8-10.8)
[2018-02-16 06:06] LABS: ALBUMIN 2.8 g/dL (3.4-5.0); ALKALINE PHOSPHATASE 61 U/L (46-116); BILIRUBIN - TOTAL 0.39 mg/dL (0.2-1.3); CALC OSMOLALITY 276 mosm/kg (275-300); CALCIUM 8.5 mg/dL (8.5-10.1); CARBON DIOXIDE 35.6 mmol/L (21.0-32.0); CHLORIDE - SERUM 97 mmol/L (98-107); CREATININE - SERUM 0.9 mg/dL (0.6-1.3); GLUCOSE 94 mg/dL (74-106); PROTEIN - SERUM 6.6 g/dL (6.4-8.2); SODIUM 138 mmol/L (136-145); UREA NITROGEN 16 mg/dL (7-18); eGFR NON AFRICAN AMERICAN > 90 mL/min (90-120)
[2018-02-16 06:11] LABS: ALT (SGPT) 38 U/L (10-68); POTASSIUM - SERUM 4.6 mmol/L (3.5-5.1)
[2018-02-16 09:31] VITALS: BP 91/51
[2018-02-16] MEDS ORDERED: LEVAQUIN750 MG PO (11:08)
[2018-02-16] MEDS ORDERED: Nicoderm [PBKC] TRANSDERM (11:08)
[2018-02-16] MEDS ORDERED: TESSALON PERLE100 MG PO (11:09)
[2018-02-16] MEDS ORDERED: MUCINEX600 MG PO (11:09)
[2018-02-16] MEDS ORDERED: ADVAIR HFA [SP]12 GM INH (11:10)
[2018-02-16] MEDS ORDERED: PREDNISONE10 MG PO (11:10)
[2018-02-16 12:00] VITALS: BP 85/45
== END 2018-02-16 14:10 | disposition home or self-care (01) | DRG 193 ==
LOC: D.ER 15:44 → D.EDHOLD 19:59 → D.MS 19:59
PROVIDERS: Emergency Medicine; Family Medicine
DX: J18.9 Pneumonia, unspecified organism (principal); J96.01 Acute respiratory failure with hypoxia; J44.0 Chronic obstructive pulmonary disease with (acute) lower respiratory infection; F17.213 Nicotine dependence, cigarettes, with withdrawal; J47.0 Bronchiectasis with acute lower respiratory infection; I50.30 Unspecified diastolic (congestive) heart failure; I11.0 Hypertensive heart disease with heart failure; E66.9 Obesity, unspecified; Z68.38 Body mass index [BMI] 38.0-38.9, adult

== ENCOUNTER → 2018-08-05 08:22 | Outpatient (CLI) | payer MEDICAID ==
[2018-02-14 13:44] VITALS: BMI 35.1
[~2018-08-05 08:22] MED LIST changes: +ADVAIR HFA [SP]12 GM INH; +FUROSEMIDE20 MG PO; +LEVAQUIN750 MG PO; +MUCINEX600 MG PO; +Nicoderm [PBKC] TRANSDERM; +PREDNISONE10 MG PO; +TESSALON PERLE100 MG PO
[2018-08-05 08:45] LABS: BASOPHILS 0.6 % (0-2); EOSINOPHILS 3.3 % (0-7); HEMATOCRIT 48.4 % (42.0-54.0); IMMATURE GRANULOCYTES 0.1 % (0-5); LYMPHOCYTES 30.8 % (15-50); MCHC 33.1 g/dL (31.0-37.0); MCV 99.8 fL (80.0-100.0); NEUTROPHILS 57.2 % (40-80); RBC 4.85 10x6/uL (4.20-6.10); RDW 15.1 % (11.5-14.5); WBC 9.7 10x3/uL (4.8-10.8)
[2018-08-05 08:47] LABS: PLATELET COUNT 339 10x3/uL (130-400)
[2018-08-05 09:15] LABS: ALBUMIN 3.4 g/dL (3.4-5.0); ALKALINE PHOSPHATASE 66 U/L (46-116); ALT (SGPT) 20 U/L (10-68); BILIRUBIN - TOTAL 0.31 mg/dL (0.2-1.3); CALC OSMOLALITY 277 mosm/kg (275-300); CALCIUM 9.3 mg/dL (8.5-10.1); CARBON DIOXIDE 31.6 mmol/L (21.0-32.0); CHLORIDE - SERUM 104 mmol/L (98-107); CHOL - HDL RATIO 4.6 ratio (2.3-4.9); CHOLESTEROL, TOTAL 211 mg/dL (0-200); CREATININE - SERUM 0.9 mg/dL (0.6-1.3); GLUCOSE 102 mg/dL (74-106); HDL CHOLESTEROL 46 mg/dL (32-96); LDL CHOLESTEROL 148 mg/dL (0-100); LDL-HDL RATIO 3.2 ratio (1.5-3.5); POTASSIUM - SERUM 4.3 mmol/L (3.5-5.1); PROTEIN - SERUM 6.8 g/dL (6.4-8.2); SODIUM 140 mmol/L (136-145); TRIGLYCERIDE 89 mg/dL (30-200); UREA NITROGEN 10 mg/dL (7-18); eGFR NON AFRICAN AMERICAN > 90 mL/min (90-120)
== END | disposition home or self-care (01) ==
LOC: D.LAB 08:22
PROVIDERS: ATTEND Family Medicine
DX: Z00.00 Encounter for general adult medical examination without abnormal findings (principal); Z12.5 Encounter for screening for malignant neoplasm of prostate; J44.9 Chronic obstructive pulmonary disease, unspecified

== ENCOUNTER → 2018-10-16 08:21 | Outpatient (CLI) | payer MEDICAID ==
[2018-02-14 13:44] VITALS: BMI 35.1
== END | disposition home or self-care (01) ==
LOC: D.RAD 08:21
PROVIDERS: ATTEND Anesthesiology
DX: M47.814 Spondylosis without myelopathy or radiculopathy, thoracic region (principal)

== ENCOUNTER 2018-10-18 02:34 | Emergency (ER) | payer MEDICAID ==
[~2018-10-18] VITALS: Ht 177.8 cm; Wt 97.7 kg
[2018-10-18 02:37] VITALS: Ht 177.8 cm; Wt 97.7 kg
--- NOTE | 2018-10-18 03:07 | NUR ---
DR. DUNLAP NOTIFIED AND REVIEWED PT'S BEHAVIOR AND ASSESSMENT RESULTS. PT IS A LOW RISK PER DR. DUNLAP. DR. DUNLAP STATED TO GIVE RESOURCES TO PT AT THE TIME OF DISCHARGE. NO FURTHER ORDERS AT THIS TIME. RESOURCES REVIEWED WITH PT AND HE VERBALIZED UNDERSTANDING.
[2018-10-18 04:18] VITALS: BP 120/75
== END 2018-10-18 04:20 | disposition home or self-care (01) ==
LOC: D.ER 02:34
DX: S00.93XA Contusion of unspecified part of head, initial encounter (principal); W18.30XA Fall on same level, unspecified, initial encounter; Y93.89 Activity, other specified; Y92.89 Other specified places as the place of occurrence of the external cause

== ENCOUNTER 2020-06-28 13:15 | Emergency (ER) | payer MEDICAID ==
[~2020-06-28] VITALS: Ht 177.8 cm; Wt 88.2 kg
[2020-06-28 13:47] VITALS: BP 101/67; Ht 177.8 cm; Wt 88.2 kg
[2020-06-28 14:12] LABS: UDS - AMPHET POSITIVE QUAL (NEGATIVE); UDS - BARB NEGATIVE QUAL (NEGATIVE); UDS - BENZO POSITIVE QUAL (NEGATIVE); UDS - COCAINE NEGATIVE QUAL (NEGATIVE); UDS - OPIATE NEGATIVE QUAL (NEGATIVE); UDS - PCP NEGATIVE QUAL (NEGATIVE); UDS - THC POSITIVE QUAL (NEGATIVE)
[2020-06-28 14:14] LABS: BASOPHILS 0.7 % (0-2); EOSINOPHILS 7.8 % (0-7); HEMATOCRIT 49.6 % (42.0-54.0); HEMOGLOBIN 16.2 g/dL (13.5-17.5); LYMPHOCYTE ABS# 1.39 10x3/uL (1.32-3.57); LYMPHOCYTES 30.3 % (15-50); MCH 32.9 pg (26.0-34.0); MCHC 32.7 g/dL (31.0-37.0); MCV 100.6 fL (80.0-100.0); MEAN PLATELET VOLUME 9.7 fL (7.4-10.4); MONOCYTES 8.1 % (2-11); NEUTROPHIL ABS# 2.44 10x3/uL (1.78-5.38); NEUTROPHILS 53.1 % (40-80); RBC 4.93 10x6/uL (4.20-6.10); RDW 13.6 % (11.5-14.5); WBC 4.6 10x3/uL (4.8-10.8)
[2020-06-28 14:16] LABS: PLATELET COUNT 250 10x3/uL (130-400)
[2020-06-28 14:30] LABS: CALC OSMOLALITY 282 mosm/kg (275-300); CALCIUM 8.6 mg/dL (8.5-10.1); CARBON DIOXIDE 28.1 mmol/L (21.0-32.0); CHLORIDE - SERUM 107 mmol/L (98-107); CREATININE - SERUM 0.8 mg/dL (0.6-1.3); GLUCOSE 72 mg/dL (74-106); SODIUM 143 mmol/L (136-145); UREA NITROGEN 10 mg/dL (7-18); eGFR NON AFRICAN AMERICAN > 90 mL/min (90-120)
[2020-06-28 14:36] LABS: ALBUMIN 3.3 g/dL (3.4-5.0); ALKALINE PHOSPHATASE 60 U/L (30-120); ALT (SGPT) 20 U/L (10-68); BILIRUBIN - TOTAL 0.35 mg/dL (0.2-1.3); MAGNESIUM - SERUM 2.2 mg/dL (1.8-2.4); PROTEIN - SERUM 6.1 g/dL (6.4-8.2)
[2020-06-28 14:41] LABS: ACETAMINOPHEN < 10.0 ug/mL (10.0-30.0)
--- NOTE | 2020-06-28 16:00 | NUR ---
DR. DUNLAP NOTIFIED AND REVIEWED PT'S BEHAVIOR AND ASSESSMENT RESULTS. PT IS A LOW RISK PER DR. DUNLAP. DR. DUNLAP STATED TO GIVE RESOURCES TO PT AT TIME OF DISCHARGE. NO FURTHER ORDERS AT THIS TIME. RESOURCES REVIEWED WITH PT AND HE VERBALIZED UNDERSTANDING.
[2020-06-28 16:17] LABS: BILIRUBIN NEGATIVE (NEGATIVE); KETONE NEGATIVE (NEGATIVE); NITRITE NEGATIVE (NEGATIVE); UROBILINOGEN NORMAL mg/dL (< 2)
== END 2020-06-28 16:33 | disposition home or self-care (01) ==
LOC: D.ER 13:15
PROVIDERS: Family Medicine
DX: F32.9 Major depressive disorder, single episode, unspecified (principal); F19.10 Other psychoactive substance abuse, uncomplicated; Z76.5 Malingerer [conscious simulation]; G62.9 Polyneuropathy, unspecified; I25.10 Atherosclerotic heart disease of native coronary artery without angina pectoris; J44.9 Chronic obstructive pulmonary disease, unspecified; Z72.0 Tobacco use

== ENCOUNTER 2020-07-28 18:54 | Inpatient (IN) | payer MEDICAID ==
[~2020-07-28] VITALS: Ht 177.8 cm; Wt 97.5 kg
[2020-07-28 19:23] LABS: BASOPHILS 1.3 % (0-2); EOSINOPHILS 7.1 % (0-7); HEMATOCRIT 50.1 % (42.0-54.0); HEMOGLOBIN 16.6 g/dL (13.5-17.5); LYMPHOCYTES 38.8 % (15-50); MCH 32.3 pg (26.0-34.0); MCHC 33.1 g/dL (31.0-37.0); MCV 97.5 fL (80.0-100.0); MONOCYTES 7.4 % (2-11); NEUTROPHILS 45.4 % (40-80); RBC 5.14 10x6/uL (4.20-6.10); RDW 13.7 % (11.5-14.5); WBC 7.2 10x3/uL (4.8-10.8)
[2020-07-28 19:25] LABS: PLATELET COUNT 324 10x3/uL (130-400)
[2020-07-28 19:42] LABS: CALC OSMOLALITY 287 mosm/kg (275-300); CALCIUM 8.9 mg/dL (8.5-10.1); CARBON DIOXIDE 31.4 mmol/L (21.0-32.0); CHLORIDE - SERUM 107 mmol/L (98-107); CREATININE - SERUM 0.9 mg/dL (0.6-1.3); GLUCOSE 93 mg/dL (74-106); POTASSIUM - SERUM 4.3 mmol/L (3.5-5.1); SODIUM 145 mmol/L (136-145); UREA NITROGEN 11 mg/dL (7-18); eGFR NON AFRICAN AMERICAN > 90 mL/min (90-120)
[2020-07-28 19:55] LABS: ALBUMIN 3.7 g/dL (3.4-5.0); ALKALINE PHOSPHATASE 65 U/L (30-120); ALT (SGPT) 22 U/L (10-68); BILIRUBIN - TOTAL 0.55 mg/dL (0.2-1.3); C-REACTIVE PROTEIN 0.2 mg/dL (0.0-0.9); MAGNESIUM - SERUM 2.3 mg/dL (1.8-2.4); PRO BNP 131 pg/mL (0-125); PROTEIN - SERUM 6.7 g/dL (6.4-8.2)
[2020-07-28 20:02] LABS: TROPONIN-I < 0.017 ng/mL (0.000-0.060)
--- NOTE | 2020-07-28 20:15 | NUR ---
URINE COLLECTED AND SENT TO LAB VIA TUBE SYSTEM.
[2020-07-28 21:00] VITALS: BP 144/79
[2020-07-28 21:19] LABS: BILIRUBIN NEGATIVE (NEGATIVE); KETONE NEGATIVE mg/dL (< 1+); NITRITE NEGATIVE (NEGATIVE); UROBILINOGEN NORMAL mg/dL (< 2)
[2020-07-28 21:25] LABS: UDS - AMPHET NEGATIVE QUAL (NEGATIVE); UDS - BARB NEGATIVE QUAL (NEGATIVE); UDS - BENZO POSITIVE QUAL (NEGATIVE); UDS - COCAINE POSITIVE QUAL (NEGATIVE); UDS - OPIATE NEGATIVE QUAL (NEGATIVE); UDS - PCP NEGATIVE QUAL (NEGATIVE); UDS - THC POSITIVE QUAL (NEGATIVE)
[2020-07-29] VITALS: BP 120/60
[2020-07-29 04:00] VITALS: BP 135/82
[2020-07-29 08:22] LABS: BASOPHILS 0.3 % (0-2); EOSINOPHILS 0 % (0-7); HEMATOCRIT 53.4 % (42.0-54.0); HEMOGLOBIN 17.5 g/dL (13.5-17.5); LYMPHOCYTES 9.9 % (15-50); MCH 31.9 pg (26.0-34.0); MCHC 32.9 g/dL (31.0-37.0); MEAN PLATELET VOLUME 8.3 fL (7.4-10.4); MONOCYTES 0.5 % (2-11); NEUTROPHILS 89.3 % (40-80); PLATELET COUNT 324 10x3/uL (130-400); RDW 13.8 % (11.5-14.5)
[2020-07-29 08:23] LABS: WBC 9.6 10x3/uL (4.8-10.8)
[2020-07-29 08:38] LABS: CALCIUM 8.9 mg/dL (8.5-10.1); CARBON DIOXIDE 30.4 mmol/L (21.0-32.0); CHLORIDE - SERUM 103 mmol/L (98-107); MAGNESIUM - SERUM 2.1 mg/dL (1.8-2.4); PHOSPHOROUS 3.5 mg/dL (2.5-4.9); POTASSIUM - SERUM 4.1 mmol/L (3.5-5.1); SODIUM 140 mmol/L (136-145); eGFR NON AFRICAN AMERICAN 80 mL/min (90-120)
[2020-07-29 08:41] LABS: CALC OSMOLALITY 282 mosm/kg (275-300); GLUCOSE 151 mg/dL (74-106); UREA NITROGEN 15 mg/dL (7-18)
[2020-07-29 13:38] VITALS: BP 137/73; BMI 30.9
--- NOTE | 2020-07-29 14:00 | NUR ---
ADMISSION COMPLETE. REQUESTED AND GIVEN ITEMS TO TAKE SHOWER. IV TO LEFT AC WRAPPED FOR SHOWER. DENIES FURTHER NEEDS.
[2020-07-29 14:19] VITALS: Ht 177.8 cm; Wt 97.5 kg
[2020-07-29] MEDS ORDERED: XANAX XR 1 MG TA1 MG PO (14:50)
[2020-07-29] MEDS ORDERED: PAXIL40 MG PO (14:50)
[2020-07-29] MEDS ORDERED: AMBIEN10 MG PO (14:51)
[2020-07-29] MEDS ORDERED: COMBIVENT RESPIM4 GM INH (14:52)
[2020-07-29 20:45] VITALS: BP 146/71
--- NOTE | 2020-07-30 03:58 | NUR ---
I have reviewed this patient and I concur with the Shift Assessment completed by the Licensed Practical Nurse today this shift.
[2020-07-30 06:40] LABS: BASOPHILS 0.1 % (0-2); EOSINOPHILS 0 % (0-7); LYMPHOCYTES 11.9 % (15-50); MCH 32.3 pg (26.0-34.0); MCHC 33.3 g/dL (31.0-37.0); MCV 96.9 fL (80.0-100.0); MEAN PLATELET VOLUME 8.2 fL (7.4-10.4); MONOCYTES 4.6 % (2-11); NEUTROPHILS 83.4 % (40-80); PLATELET COUNT 307 10x3/uL (130-400); RBC 4.64 10x6/uL (4.20-6.10); RDW 13.6 % (11.5-14.5); WBC 9.7 10x3/uL (4.8-10.8)
[2020-07-30 07:15] LABS: ALBUMIN 4.1 g/dL (3.4-5.0); ALKALINE PHOSPHATASE 59 U/L (30-120); BILIRUBIN - TOTAL 0.19 mg/dL (0.2-1.3); CALC OSMOLALITY 284 mosm/kg (275-300); CALCIUM 8.8 mg/dL (8.5-10.1); CARBON DIOXIDE 26.2 mmol/L (21.0-32.0); CHLORIDE - SERUM 106 mmol/L (98-107); CREATININE - SERUM 0.8 mg/dL (0.6-1.3); GLUCOSE 120 mg/dL (74-106); POTASSIUM - SERUM 4.2 mmol/L (3.5-5.1); PROTEIN - SERUM 6.2 g/dL (6.4-8.2); SODIUM 142 mmol/L (136-145); UREA NITROGEN 15 mg/dL (7-18); eGFR NON AFRICAN AMERICAN > 90 mL/min (90-120)
--- NOTE | 2020-07-30 07:15 | NUR ---
SHIFT REPORT RECIEVED. PT WALKING AROUND. NO NEEDS AT THIS TIME. WCTM
[2020-07-30 07:18] LABS: ALT (SGPT) 16 U/L (10-68)
[2020-07-30 09:14] VITALS: BP 121/70
--- NOTE | 2020-07-30 10:21 | NUR ---
PT IN SHOWER. REQUESTED A PHONE BOOK TO LOOK UP A "[facility] [address] [place] [address] AND [facility]." ATTEMPTED TO GOOGLE. SHOWED NO GOOD RESULTS. WILL ATTEMPT TO FIND A PHONE BOOK. PT IN SHOWER. FRESH LINENS PROVIDED. WCTM
[2020-07-30 13:37] VITALS: BP 145/78
[2020-07-30] MEDS ORDERED: NICODERM CQ1 EAC3 TRANSDERM (13:53)
[2020-07-30] MEDS ORDERED: FEXOFENADINE HC60 MG PO (13:53)
[2020-07-30] MEDS ORDERED: BAYER CHEWABLE81 MG PO (13:54)
[2020-07-30] MEDS ORDERED: PAXIL40 MG PO (13:54)
[2020-07-30] MEDS ORDERED: STERAPRED 5MG 65 M1 PO (13:55)
[2020-07-30] MEDS ORDERED: XANAX XR 1 MG TA1 MG PO (13:56)
[2020-07-30] MEDS ORDERED: AMBIEN10 MG PO (13:56)
[2020-07-30] MEDS ORDERED: SYMBICORT 16010.2 GM INH (13:56)
--- NOTE | 2020-07-30 14:16 | NUR ---
PT HAVING ANXIETY ABOUT HOMELESS SITUATION AND EX-GIRLFIRIEND. CL IN REACH. XANAX GIVEN PER EMAR. WCTM
--- NOTE | 2020-07-30 18:34 | NUR ---
DISCHARGE PAPERWORK GIVEN. PT VERBALIZED UNDERSTANDING. PAXIL AND LOPRESSOR RECIEVED WELL DOSE PACK, AND MEDS GIVEN FROM DR NAGY. CALLED FOR CAB TO TAKE TO BUS STATION WHERE PT HAS SOME PROPERTY "STASHED"
--- NOTE | 2020-08-01 07:05 | MORECARE ---
CASE MANAGEMENT DISCHARGE SUMMARY PATIENT: ASHLEY PAZU UNIT: [id number] ADM DATE: 07/29/20 AGE: 65 : 59 SEX: M ROOM/BED: D.2225 AUTHOR: ELE HYMAN PHYSICIAN: REFERRING PHYSICIAN: DEQUAN HUA MD DATE OF SERVICE: 08/01/20 Case Management Discharge Planning Summary COMMENTS ENTERED DATE: 07/29/20 17:16 CT COMMENT TYPE: Discharge Planning REVIEWER: Fransisca Medina PATIENT STATES PRIOR TO ARRIVAL BAG WAS STOLEN THAT CONTAINED MEDS SUCH BENZOS AND INHALER. PATIENT CONCERNED WILL BE DC'D AND HAVE NO WAY TO GET MEDS. HE STATES HE SEES A PSCYCHIATRIST AT [facility]. CM TO FOLLOW AND ASSIST NEEDED. DCP REVIEW SUMMARY ANTICIPATED D/C DATE: EXPECTED LOS : CASE STATUS: DCP Initiated INITIAL REVIEW: 07/28/2020 INITIAL REVIEWER: Fern Cifuentes FINAL DISCHARGE DISPOSITION: 01 : Home or Self Care (Routine Discharge) FINAL REVIEWER: Fern Cifuentes FINAL REVIEW DATE: 07/30/2020 DCP Focus Questions & Answers DCP Screen QUESTION: ANSWER High Risk Factors: : Poor social support DCP Evaluation QUESTION: ANSWER Patient's ability to cope with chronic illness : d. No chronic illness Would patient like to participate in any Care Coordination programs (if applicable): : Not applicable Mental health screen: : No mental health history DCP Re-evaluation QUESTION: ANSWER Would patient like to participate in any Care Coordination programs (if applicable): : Not applicable PATIENT: ASHLEY PAZ ENCOUNTER: [id number] MEDICAL RECORD#: [id number] ADMISSION DATE: 07/29/2020 DISCHARGE DATE: 07/30/2020 ATTENDING MD: DEQUAN HADDAD : AGE: 65 MARITAL STATUS: M DC PLAN ID: [id number] FACILITY: [facility] PRINTED ON: 08/01/20 7:04 CT All edits/amendments must be made on the electronic document DICTATION DATE: 08/01/20703 FACE AND FILL PACKER: SANDRA 08/01/20703 RPT#: [id number] DC DATE:07/30/20 STATUS: DIS IN [facility] [address] [place] [address] END OF REPORT
--- NOTE | 2020-08-01 07:15 | MORECARE ---
CASE MANAGEMENT DISCHARGE SUMMARY PATIENT: ASHLEY PAZ UNIT: [id number] ADM DATE: 07/29/20 AGE: 65 : 59 SEX: M ROOM/BED: D.2225 AUTHOR: ELE HYMAN PHYSICIAN: REFERRING PHYSICIAN: DEQUAN HUA MD DATE OF SERVICE: 08/01/20 Case Management Discharge Planning Summary COMMENTS ENTERED DATE: 07/29/20 17:16 CT COMMENT TYPE: Discharge Planning REVIEWER: Fransisca Medina PATIENT STATES PRIOR TO ARRIVAL BAG WAS STOLEN THAT CONTAINED MEDS SUCH BENZOS AND INHALER. PATIENT CONCERNED WILL BE DC'D AND HAVE NO WAY TO GET MEDS. HE STATES HE SEES A PSCYCHIATRIST AT [facility]. CM TO FOLLOW AND ASSIST NEEDED. DCP REVIEW SUMMARY ANTICIPATED D/C DATE: EXPECTED LOS : CASE STATUS: DCP Initiated INITIAL REVIEW: 07/28/2020 INITIAL REVIEWER: Fern Cifuentes FINAL DISCHARGE DISPOSITION: 01 : Home or Self Care (Routine Discharge) FINAL REVIEWER: Fern Cifuentes FINAL REVIEW DATE: 07/30/2020 DCP Focus Questions & Answers DCP Screen QUESTION: ANSWER High Risk Factors: : Poor social support DCP Evaluation QUESTION: ANSWER Patient's ability to cope with chronic illness : d. No chronic illness Patient and/or caregiver agree upon recommended discharge plan? : Yes Patient's current cognitive status: : *Oriented to person, place, situation, time and present Patient gives permission to discuss discharge plans with: (name, relationship and number) : APARNA ELLER [phone] Does the patient have the ability to pay for or attain post discharge needs / services? : No Physical Status: : Independent with ADL's Equipment needed for post hospitalization: : None Is there a likelihood that the patient will require additional services to return to the preadmission environment? : Yes Living Arrangements: : Homeless Results of this evaluation have been discussed with: : Patient Patient with capacity for self-care or can be cared for in same environment as prior to hospitalization? : Yes Baseline cognitive status: : *Oriented to person, place, situation, time and present Physical environment modification needed / anticipated for discharge: : Yes Comments: : WILL NEED ASSIST WITH TRANSPORTATION AND MEDS Physical environment referral comments (if applicable): : PATIENT IS AWARE OF SHELTERS AVAILABLE Medication Management: : Patient states cannot afford medications Planned post hospital services available for patient? : Yes Pharmacy name(s): : [facility] Planned post hospital services covered by insurance plan? : Yes Does Patient have transportation to get home and to follow-up medical appointments when discharged from the hospital? : No Would patient like to participate in any Care Coordination programs (if applicable): : Not applicable Does the patient have electricity at home? : No Does the patient have running water in their house? : No Equipment in use: : None Mental health screen: : Currently under the care of mental health provider Mental health provider name and contact information: : [facility] Psychosocial status: : Independent adult (18-64) Abuse/Neglect: : Substance abuse - History of Resources / Services in place: : Behavior Health - Outpatient DCP Re-evaluation QUESTION: ANSWER Would patient like to participate in any Care Coordination programs (if applicable): : Not applicable PATIENT: ASHLEY PAZ ENCOUNTER: [id number] MEDICAL RECORD#: [id number] ADMISSION DATE: 07/29/2020 DISCHARGE DATE: 07/30/2020 ATTENDING MD: DEQUAN HADDAD : AGE: 65 MARITAL STATUS: M DC PLAN ID: [id number] FACILITY: [facility] PRINTED ON: 08/01/20 7:15 CT All edits/amendments must be made on the electronic document DICTATION DATE: 08/01/20714 COMPUTER DRAFTER: SANDRA 08/01/20714 RPT#: [id number] DC DATE:07/30/20 STATUS: DIS IN [facility] [address] [place] [address] END OF REPORT
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
== END 2020-07-30 18:38 | disposition home or self-care (01) | DRG 192 ==
LOC: D.ER 18:54 → OBSVTIME 19:27 → D.EDHOLD 19:27 → D.MS 07-29 11:29
PROVIDERS: Family Medicine; ADMIT Emergency Medicine; ATTEND Emergency Medicine
DX: J44.1 Chronic obstructive pulmonary disease with (acute) exacerbation (principal); F43.12 Post-traumatic stress disorder, chronic; Z59.0 Homelessness; Z96.651 Presence of right artificial knee joint